=== PATIENT | male | born 1970 | race Caucasian/White ===

== ENCOUNTER → 2016-06-28 | Outpatient (CLI) | payer BC ==
--- NOTE | 2016-06-28 10:48 | ECHOS ---
DATE OF SERVICE: 06/28/2016 AGE: 45Y SEX: M HT: 72 WT: 255 lbs. Protocol Héctor: X Others: Stress Echo Stage: IV Dur. of Exercise: 10 minutes *Heart Rate Blood Pressure *Rest: 89 Rest: 110/46 * *Max. Achieved: 172 Maximum BP: 164/70 85% PMHR: 100% PMHR: *METS: 11.5 INDICATION OF THE STUDY: Chest pain. MEDICATIONS: STRESS DATA: Pretesting physical examination showed the heart rate of 89, pressure is 110/46 mmHg. Baseline EKG showed sinus rhythm. The patient exercised on the treadmill according to Héctor protocol for a total of 10 minutes and achieved 11.5 METs. Max heart rate was 172, which is about 99% of maximum predicted heart rate. Maximum blood pressure was 164/70 mmHg. Clinically, the patient did not have any symptoms of chest pain or discomfort during the testing or in the recovery time. The EKG did not show any significant ST or T wave abnormalities consistent with ischemia. ECHOCARDIOGRAM IMAGES: On echocardiogram images from parasternal long axis view, parasternal short axis view, apical 4 chambers and apical 2 chambers view were obtained as baseline images, at the peak of the heart rate, as well as on recovery and the echocardiogram images showed good augmentation in the left ventricular systolic function without any evidence of wall motion abnormalities consistent with ischemia. CONCLUSION: 1. Good exercise capacity. 2. Normal EKG in response to exercise. 3. Normal echocardiogram in response to exercise.
== END | disposition home or self-care (01) ==
LOC: RADNMMAIN 09:03
PROVIDERS: ATTEND Family Medicine
DX: R07.9 Chest pain, unspecified (principal)
CPT/HCPCS: 93017; 93350

== ENCOUNTER → 2017-12-08 | Outpatient (CLI) | payer BC ==
--- NOTE | 2017-12-08 17:12 | ECHOF ---
Referral Reason:R42 Dizziness Giddiness, R03.0 Elevated Blood Pres MEASUREMENTS -------- HEIGHT: 182.9 cm WEIGHT: 113.4 kg BP: IVSd: 0.8 cm (0.6 - 1.1) LVIDd: 4.4 cm (3.9 - 5.3) LVPWd: 1.1 cm (0.6 - 1.1) IVSs: 2.1 cm LVIDs: 1.5 cm LVPWs: 1.7 cm Ao Diam: 3.8 cm (2.0 - 3.7) AV Cusp: 2.5 cm (1.5 - 2.6) LA Diam: 3.5 cm (2.7 - 3.8) MV EXCURSION: 8.330 mm (> 18.000) MV EF SLOPE: 68 mm/s (70 - 150) EPSS: 0.5 cm MV E Rio: 0.68 m/s MV DecT: 165 ms MV A Rio: 0.46 m/s MV E/A Ratio: 1.45 RAP: 5.00 mmHg RVSP: 22.03 mmHg FINDINGS -------- Sinus rhythm. This was a technically good study. The left ventricular size is normal. Left ventricular wall thickness is normal. Overall left vent ricular systolic function is normal with, an EF between 55 - 60 %. The right ventricle is normal in size. The left atrium is normal in size. The right atrium is normal in size. The aortic valve is trileaflet, and appears structurally normal. No aortic stenosis or regurgitation. There is trace mitral regurgitation. Trace tricuspid regurgitation present. The right ventricular systolic pressure, as measured by Dopp ler, is 22.03mmHg. Pulmonic valve appears structurally normal. The aortic root is dilated measuring 3.9 cm. Normal inferior vena cava with normal inspiratory collapse consistent with estimated right atrial pre ssure of 5 mmHg. The pericardium is normal. CONCLUSIONS -------- 1. Sinus rhythm. 2. This was a technically good study. 3. The left ventricular size is normal. 4. Left ventricular wall thickness is normal. 5. Overall left ventricular systolic function is normal with, an EF between 55 - 60 %. 6. The right ventricle is normal in size. 7. The left atrium is normal in size. 8. The right atrium is normal in size. 9. The aortic valve is trileaflet, and appears structurally normal. No aortic stenosis or regurgitati on. 10. There is trace mitral regurgitation. 11. Trace tricuspid regurgitation present. 12. The right ventricular systolic pressure, as measured by Doppler, is 22.03mmHg. 13. Pulmonic valve appears structurally normal. 14. The aortic root is dilated measuring 3.9 cm 15. Normal inferior vena cava with normal inspiratory collapse consistent with estimated right atrial pressure of 5 mmHg. 16. The pericardium is normal. FLEET TECHNICIAN: Katia Ocampo RDCS
--- NOTE | 2017-12-09 16:11 | US ---
EXAMINATION TYPE: US carotid duplex BILAT DATE OF EXAM: 12/08/2017 COMPARISON: NONE CLINICAL HISTORY: R42 Dizziness Giddiness, R03.0 Elevated Blood Pres. Pt states dizziness, lightheade d EXAM MEASUREMENTS: RIGHT: Peak Systolic Velocity (PSV) cm/sec ----- Right CCA: 68.6 ----- Right ICA: 59.3 ----- Right ECA: 61.2 ICA/CCA ratio: 0.9 RIGHT: End Diastole cm/sec ----- Right CCA: 20.6 ----- Right ICA: 29.9 ----- Right ECA: 11.9 LEFT: Peak Systolic Velocity (PSV) cm/sec ----- Left CCA: 78.2 ----- Left ICA: 88.8 ----- Left ECA: 56.4 ICA/CCA ratio: 1.1 LEFT: End Diastole cm/sec ----- Left CCA: 25.0 ----- Left ICA: 43.6 ----- Left ECA: 13.1 VERTEBRALS (direction of flow): Right Vertebral: Antegrade Left Vertebral: Antegrade Rhythm: Normal No significant stenosis seen IMPRESSION: Mild degree of grayscale atheromatous plaquing with no sonographically evident hemodynam ically significant stenosis within either visualized carotid arterial system.
== END | disposition home or self-care (01) ==
LOC: RADECHMAIN 14:55
PROVIDERS: ATTEND Family Medicine
DX: I65.23 Occlusion and stenosis of bilateral carotid arteries (principal); I77.819 Aortic ectasia, unspecified site
CPT/HCPCS: 93306; 93880

== ENCOUNTER → 2020-09-16 | Outpatient (CLI) | payer BC ==
--- NOTE | 2020-09-16 18:03 | CONS ---
CONSULTATION DATE OF SERVICE: 09/16/2020 This is a 50-year-old gentleman who has been evaluated in Sleep Center for possible obstructive sleep apnea-hypopnea syndrome. HISTORY OF PRESENT ILLNESS/SLEEP-WAKE EVALUATION: Patient's usual sleep schedule is from 9:30 p.m. to 4:30 a.m. on weekdays and from 10 p.m. to 6 a.m. on weekends. No problems with falling asleep. No TV in bedroom. The patient usually sleeps on the side position. He has loud snoring and witnessed episodes by his of stopped breathing during sleep. The patient has history of episodes of palpitation, heartburn, gasping for air. He wakes up from sleep 2 times, usually without nocturia. In the morning, the patient has difficulties concentrating, difficulties paying attention. [place] Sleepiness Scale is 5. The patient drinks up to 5 caffeinated beverages in the morning hours. PAST MEDICAL HISTORY: Positive for hypertension, hyperlipidemia, acid reflux, sinus problems. PAST SURGICAL HISTORY: Hernia repair. MEDICATIONS: Only [id number] medications at the present time. SOCIAL HISTORY: Positive history of smoking in the past. Quit smoking in 2000. Continues to chew tobacco. Alcohol consumption: None. FAMILY HISTORY: Sleep apnea. REVIEW OF SYSTEMS: No fevers. No double vision. No recent chest pain. No shortness of breath. No abdominal pain. No bleeding episodes. No blood in the urine. No seizure episodes. Awakenings from sleep, loud snoring, episodes of stopped breathing during sleep. PHYSICAL EXAMINATION: GENERAL: A pleasant gentleman without distress. VITAL SIGNS: BP 135/92, HR 84, RR 15, height 6 feet 0 inches, weight 259, temperature 97.0. Oxygen saturation at room air 97%. Body mass index 34.9. HEENT: GERARDO SINGH. Evaluation of oropharynx showed tongue protrudes midline. Low position of soft palate. Mallampati III to IV. NECK: Supple. No JVD. Thyroid is not palpable. Wide neck; 18 inches in circumference. LUNGS: Clear to percussion and to auscultation. Good air exchange. No wheezing or rhonchi. HEART: S1, S2 regular. No murmurs, gallops or rubs. ABDOMEN: Soft and nontender. Bowel sounds are present. No organomegaly appreciated. EXTREMITIES: No clubbing or cyanosis. 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 Cranial nerves 2 to 7 intact. There is no fasciculation or atrophy. noted. No focal deficits observed. IMPRESSION: 1. Loud snoring, witnessed episodes of stopped breathing during sleep, low position of soft palate, wide neck, 18 inches in circumference; obstructive sleep apnea- hypopnea syndrome. 2. History of measurements of increasing blood pressure. 3. Hyperlipidemia. 4. Acid reflux. 5. Status post hernia repair. 6. Sinus problems. 7. Allergies. PLAN: 1. Home sleep apnea test to check the patient's breathing during sleep. 2. CPAP/BiPAP titration if sleep study confirms obstructive sleep apnea-hypopnea syndrome. 3. Preferable position during sleep on the side. 4. No driving if patient feels any sleepiness. 5. I will see patient for follow up visit to explain results of testing and following plan. Thank you very much for referring this patient for consultation. Sincerely, Sincere Villareal MD, PhD, FAASM Diplomat of [employer] [employer] [employer] Marine Equipment Design Engineer of [facility] [place] MMODL / IJN: [id number] /
== END ==
LOC: SLEEP 16:26
PROVIDERS: ATTEND Internal Medicine
DX: G47.33 Obstructive sleep apnea (adult) (pediatric) (principal); E78.5 Hyperlipidemia, unspecified; K21.9 Gastro-esophageal reflux disease without esophagitis; Z98.890 Other specified postprocedural states; T78.40XA Allergy, unspecified, initial encounter; I10 Essential (primary) hypertension; F17.220 Nicotine dependence, chewing tobacco, uncomplicated; J34.9 Unspecified disorder of nose and nasal sinuses
CPT/HCPCS: 99211

== ENCOUNTER → 2020-09-28 | Outpatient (CLI) | payer BC ==
--- NOTE | 2020-10-16 11:51 | EM ---
EVENT MONITOR INDICATION: Chest pain. It is a 14 day event monitor. Provided rhythm strips show sinus rhythm with episodes of sinus tachycardia and occasional PVCs and PACs. There were no episodes of sustained ventricular tachyarrhythmia. There were no first and second pauses. There were episodes of ventricular bigeminy noted. CONCLUSION: This 24 hour Holter revealed sinus rhythm with sinus tachycardia and frequent PVCs including a 4-beat run of nonsustained VT, PACs are also noted. MMODL / IJN: [id number] /
== END | disposition home or self-care (01) ==
LOC: RADECHMAIN 12:28
PROVIDERS: ATTEND Family Medicine
DX: R00.0 Tachycardia, unspecified (principal); I49.3 Ventricular premature depolarization; I49.1 Atrial premature depolarization
CPT/HCPCS: 93270

== ENCOUNTER → 2020-10-14 | Outpatient (CLI) | payer BC ==
--- NOTE | 2020-10-15 03:12 | MR ---
EXAMINATION TYPE: MR brain wo/w con DATE OF EXAM: 10/14/2020 COMPARISON: HISTORY: Possible stroke. Transient cerebral ischemic attack, unspecified. CONTRAST: Standard multiplanar, multisequence MRI departmental protocol utilizing 12 mL intravenous Gadavist ga dolinium contrast. Ventricles have fairly normal size. There is no mass effect nor mid line shift. There is no sign of i ntracranial hemorrhage. Diffusion images show no sign of an acute infarct. There are a few foci of in creased signal measuring up to 5 mm in the white matter of both cerebral hemispheres. Total number is approximately 5 and these are somewhat peripheral. Contrast images show no pathologic enhancement. There is normal enhancement of the venous sinuses. Br ainstem is intact. Corpus callosum is intact. Sella turcica appears normal. Pituitary stalk is in the midline. IMPRESSION: There are a few scattered white matter high signal foci of uncertain significance. This could relate to minimal small vessel ischemia. No evidence of cortical infarct.
--- NOTE | 2020-10-15 03:15 | MR ---
EXAMINATION TYPE: MR neck wo/w con DATE OF EXAM: 10/14/2020 COMPARISON: HISTORY: Possible stroke. Transient cerebral ischemic attack, unspecified. CONTRAST: Standard multiplanar, multisequence MRI departmental protocol utilizing 12 mL intravenous Gadavist ga dolinium contrast. Multiplanar multiecho imaging of the neck was performed without and with IV contrast. There is normal branching pattern of the great vessels on the aortic arch. There is no evidence of th yroid mass. I see no significant cervical adenopathy. Trachea appears normal. Submandibular salivary glands are symmetric. There is no evidence of a parotid mass. I see no bony destructive process. IMPRESSION: Negative MR scan of the neck.
== END | disposition home or self-care (01) ==
LOC: RADMRIMAIN 20:36
PROVIDERS: ATTEND Nurse Practitioner
DX: G45.9 Transient cerebral ischemic attack, unspecified (principal); R90.82 White matter disease, unspecified
CPT/HCPCS: 70543; 70553; A9585

== ENCOUNTER 2020-11-07 05:40 | Emergency (ER) | payer BC ==
[2020-11-07 05:46] VITALS: RESP 18; TEMP 98.2
--- NOTE | 2020-11-07 05:51 | ED ---
Chest Pain HPI - General Source: patient, RN notes reviewed, old records reviewed Mode of arrival: wheelchair Limitations: no limitations - History of Present Illness MD Complaint: chest pain -: days(s) Onset: during rest Pain Location: substernal Pain Radiation: none Severity: moderate Severity scale (1-10): 5 Consistency: constant Improves With: nothing, eating Other Symptoms: cough Treatments Prior to Arrival: none <Gaurav Pineda - Last Filed: 11/07/20 06:57> <Luther Frias - Last Filed: 11/07/20 09:59> - General Chief Complaint: Chest Pain Stated Complaint: Chest Pain Time Seen by Provider: 11/07/20 05:51 - Related Data Allergies Allergy/AdvReac Type Severity Reaction Status Date / Time No Known Allergies Allergy Verified 11/07/20 05:44 Review of Systems ROS Other: All systems not noted in ROS Statement are negative. <Gaurav Pineda - Last Filed: 11/07/20 06:57> ROS Other: All systems not noted in ROS Statement are negative. <Luther Frias - Last Filed: 11/07/20 09:59> ROS Statement: Those systems with pertinent positive or pertinent negative responses have been documented in the HPI. EKG Findings - EKG Comments: EKG Findings:: EKG is sinus rhythm 87 SD 182 QRS 88 QTc 442 <Gaurav Pineda - Last Filed: 11/07/20 06:57> Past Medical History Past Medical History: CVA/TIA, Hyperlipidemia, Hypertension History of Any Multi-Drug Resistant Organisms: None Reported Past Surgical History: Hernia Repair Past Psychological History: No Psychological Hx Reported Smoking Status: Former smoker Past Alcohol Use History: Daily Past Drug Use History: None Reported <Gaurav Pineda - Last Filed: 11/07/20 06:57> General Exam Limitations: no limitations General appearance: alert, in no apparent distress Head exam: Present: atraumatic, normocephalic, normal inspection Eye exam: Present: normal appearance, PERRL, EOMI. Absent: scleral icterus, conjunctival injection, periorbital swelling ENT exam: Present: normal exam, mucous membranes moist Neck exam: Present: normal inspection. Absent: tenderness, meningismus, lymphadenopathy Respiratory exam: Present: normal lung sounds bilaterally. Absent: respiratory distress, wheezes, rales, rhonchi, stridor Cardiovascular Exam: Present: regular rate, normal rhythm, normal heart sounds. Absent: systolic murmur, diastolic murmur, rubs, gallop, clicks GI/Abdominal exam: Present: soft, normal bowel sounds. Absent: distended, tenderness, guarding, rebound, rigid Extremities exam: Present: normal inspection, full ROM, normal capillary refill. Absent: tenderness, pedal edema, joint swelling, calf tenderness Back exam: Present: normal inspection Neurological exam: Present: alert, oriented X3, CN II-XII intact Psychiatric exam: Present: normal affect, normal mood Skin exam: Present: warm, dry, intact, normal color. Absent: rash <Gaurav Pineda - Last Filed: 11/07/20 06:57> Course <Gaurav Pineda - Last Filed: 11/07/20 06:57> <Luther Frias - Last Filed: 11/07/20 09:59> Vital Signs 11/07/20 11/07/20 05:44 06:46 Temperature 98.2 F Pulse Rate 81 75 Respiratory 18 18 Rate Blood Pressure 139/88 112/79 O2 Sat by Pulse 100 95 Oximetry - Reevaluation(s) Reevaluation #1: 11/07/20 06:57 Medical record is reviewed (Gaurav Pineda) Reevaluation #2: 11/07/20 06:57 Patient states his symptoms are improved both at home and furthermore here in the ER (Gaurav Pineda) Reevaluation #3: 11/07/20 06:57 Patient is currently without chest pain shortness of breath or neurological complaint (Gaurav Pineda) Reevaluation #4: 11/07/20 06:57 Patient informed results and questions answered 11/07/20 06:57 Patient prefers discharge after second troponin possible (Gaurav Pineda) 11/07/20 09:58 Chest x-ray reviewed. Patient has refused admission. Patient reevaluated and resting comfortably in bed. Patient states he has had significant workup recently including stress test this past week. Patient updated on limitations of tests in the emergency department and does demonstrate medical decision making. Patient states he does have an appointment follow-up Wednesday with his display designer. Patient advised to follow-up sooner as well as with primary care physician. (Luther Frias) Disposition Is patient prescribed a controlled substance at d/c from ED?: No <Gaurav Pineda - Last Filed: 11/07/20 06:57> Is patient prescribed a controlled substance at d/c from ED?: No <Luther Frias - Last Filed: 11/07/20 09:59> Clinical Impression: Chest pain Disposition: Left Against Medical Advice Condition: Fair Instructions (If sedation given, give patient instructions): Chest Pain (ED) Additional Instructions: Please do follow-up with your display designer and primary care physician Monday. Return for pain, difficulty breathing, worsening symptoms or any other concerns. Referrals: Cruz Belcher MD [Primary Care Provider] - 1-2 days
[2020-11-07 06:15] LABS: Basophils # (A) 0.1 k/uL (0-0.2); Basophils % (A) 1 %; Eosinophils # (A) 0.5 k/uL (0-0.7); Eosinophils % (A) 6 %; HGB 16.9 gm/dL (13.0-17.5); Lymphocytes # (A) 2.5 k/uL (1.0-4.8); Lymphocytes % (A) 30 %; MCHC 35.1 g/dL (31.0-37.0); MCV 91.1 fL (80.0-100.0); Mean Platelet Volume 6.9; Monocytes # (A) 0.6 k/uL (0-1.0); Monocytes % (A) 8 %; Neutrophils # (A) 4.4 k/uL (1.3-7.7); Neutrophils % (A) 54 %; Platelet Count 284 k/uL (150-450); RBC 5.27 m/uL (4.30-5.90); RDW 12.1 % (11.5-15.5); WBC 8.2 k/uL (3.8-10.6)
[2020-11-07 06:18] LABS: ALT 38 U/L (4-49); African American GFR (CKD) >90 (>60 ml/min/1.73 sqM); Anion Gap 8 mmol/L; Blood Urea Nitrogen 17 mg/dL (9-20); Calcium 9.9 mg/dL (8.4-10.2); Carbon Dioxide 25 mmol/L (22-30); Chloride 104 mmol/L (98-107); Creatine Kinase 270 U/L (55-170); Glucose 106 mg/dL (74-99); Lipase 144 U/L (23-300); Non-African American GFR(CKD) 86 (>60 ml/min/1.73 sqM); Sodium 137 mmol/L (137-145); Total Bilirubin 2.4 mg/dL (0.2-1.3)
--- NOTE | 2020-11-07 06:19 | XR ---
EXAMINATION TYPE: XR chest 2V DATE OF EXAM: 11/07/2020 COMPARISON: NONE HISTORY: Chest pain TECHNIQUE: 2 views FINDINGS: Heart and mediastinum are normal. Lungs are clear. Diaphragm is normal. Bony thorax appears normal. There are chest leads. IMPRESSION: Normal chest.
[2020-11-07 06:20] LABS: INR 0.9 (<1.2); Partial Thromboplastin Time 26.5 sec (22.0-30.0)
[2020-11-07] MEDS ORDERED: NITROGLYCERIN SL TABS 0.4 MG TAB SUBLINGUAL PRN (06:36)
[2020-11-07] MEDS ORDERED: MORPHINE SULFATE 4 MG/ML SYRINGE IV PRN (06:36)
[2020-11-07] MEDS ORDERED: ASPIRIN 81 MG PO STA ×2 (06:36→07:08)
[2020-11-07 06:41] LABS: Magnesium 2.1 mg/dL (1.6-2.3); Potassium 4.7 mmol/L (3.5-5.1)
[2020-11-07 06:42] LABS: AST 41 U/L (17-59); Albumin 4.7 g/dL (3.5-5.0); Alkaline Phosphatase 97 U/L (38-126); Total Protein 7.4 g/dL (6.3-8.2)
[2020-11-07 07:23] LABS: Creatine Kinase MB 2.5 ng/mL (0.0-2.4); Troponin I <0.012 ng/mL (0.000-0.034)
[2020-11-07 10:11] VITALS: BP 113/70; PULSE 72
[2020-11-08] MEDS ORDERED: ASPIRIN 325 MG TAB PO SCH (09:00)
== END 2020-11-07 10:15 | disposition left against medical advice (07) ==
LOC: EC 05:40 → 6NMEDSUR 06:36 → UNDOADMOB 06:36 → EC 10:15
DX: R07.89 Other chest pain (principal); I10 Essential (primary) hypertension; E78.5 Hyperlipidemia, unspecified; Z86.73 Personal history of transient ischemic attack (TIA), and cerebral infarction without residual deficits; Z87.891 Personal history of nicotine dependence
CPT/HCPCS: 36415; 71046; 80053; 82550; 82553; 83690; 83735; 83880; 84484; 85025; 85610; 85730; 93005; 99285

== ENCOUNTER → 2020-11-20 | Day surgery (SDC) | payer BC ==
[2020-11-19 10:03] VITALS: BMI 33.9
[~2020-11-20] MED LIST: ALPRAZolam 0.25 MG TAB PO PRN; ALPRAZolam 0.5 MG TAB PO PRN; ASPIRIN 325 MG TAB PO STA; ASPIRIN 81 MG PO SCH; ATORVASTATIN 40 MG TAB PO SCH; ATORVASTATIN 80 MG TAB PO STA; IOPAMIDOL-370 125ML BTL INJ ONE; LIDOCAINE 1% INJ 10MG/ML (20 ML MDV) SQ ONE; LORATADINE 10 MG TAB PO PRN; LOSARTAN 50 MG TAB PO SCH; METOPROLOL SUCCINATE (ER) 25 MG TAB.ER.24H PO SCH; MIDAZOLAM 2 MG/2 ML VIAL IV ONE; NITROGLYCERIN SL TABS 0.4 MG TAB SUBLINGUAL PRN; RX INFO: IV CONTRAST WAS GIVEN 1 EACH MISC MISCELLANE PRN; SODIUM CHLORIDE 0.9% 1,000 ML IV SCH; SODIUM CHLORIDE 0.9% 1,000 ML in EMPTY BAG 1 BAG IV ONE; VERAPAMIL SYRINGE (5 MG/10 ML) INTRAARTER ONE; fentaNYL (PF) 50 MCG/ML 2 ML AMP IV ONE
[2020-11-20 07:03] VITALS: RESP 16; TEMP 99.2
[2020-11-20 10:16] VITALS: BP 119/73; PULSE 68
--- NOTE | 2020-11-20 13:05 | P.CARDCATH ---
Description of Procedure: PROCEDURES PERFORMED: Left heart catheterization, bilateral coronary angiography INDICATION: Abnormal stress test HISTORY: Patient is a pleasant 50-year-old male with history of hypertension, borderline diabetes, family history of coronary artery disease. He has been having somewhat atypical chest pain as well as palpitations. Workup identified in the inferior defect or for heart catheterization was recommended. CONSENT:I have discussed the risks, benefits and alternative therapies for the above-mentioned procedure and for both sedation/analgesia as well as necessary blood product administration, if indicated, as they pertain to this patient. The patient has indicated understanding and acceptance of the risks and proced ures discussed. PROCEDURE: After the risks, benefits and alternatives of the above mentioned procedure explained in detail with the patient, informed consent was obtained. Patient was taken to the catheterization lab and prepped and draped in usual fashion. 1% lidocaine was used to anesthetize the right radial artery. A 6- [place] sheath was placed in the right radial artery using modified Seldinger technique. Left coronary angiography was performed with a 5-[place] JL 3.5 catheter and right coronary angiography was performed with a 5-[place] JR5 catheter in various views. A 5-[place] FRS 5 catheter was inserted into the left ventricle and pressure measurements were obtained. The right radial sheath was removed and a TR band was placed with hemostasis achieved. The patient tolerated the procedure well. Patient was transported back to the post catheterization holding area in stable condition. Conscious Sedation: Patient was monitored under the direct supervision of vision of myself for conscious sedation using Versed and fentanyl for a total duration of 18 minutes HEMODYNAMICS: Aorta: 135/67 LV: 132/1, LVEDP 12 SELECTIVE CORONARY ARTERIOGRAPHY: LEFT MAIN: The left main is a large caliber vessel which bifurcates into the LAD and circumflex. There is no significant stenosis. LEFT ANTERIOR DESCENDING CORONARY ARTERY: LAD is a large caliber vessel which wraps around to the apex. There is a mild proximal LAD 30-40% stenosis and otherwise is normal. LEFT CIRCUMFLEX CORONARY ARTERY: Left circumflex is a moderate caliber vessel without significant stenosis. RIGHT CORONARY ARTERY: The right coronary artery is a large caliber vessel which gives off a PDA and PLV branch and is the dominant vessel. There is no significant stenosis. FINAL IMPRESSION: 1. Relatively normal coronary arteries except for a proximal LAD 30-40% stenosis 2. Normal left-sided filling pressures PLAN: 1. Aggressive risk factor modification per most recent ACC/AHA guidelines. 2. Follow-up in the office in 1-2 weeks.
== END ==
LOC: CATHCVL 05:45
PROVIDERS: ATTEND Internal Medicine
DX: I25.10 Atherosclerotic heart disease of native coronary artery without angina pectoris (principal); I10 Essential (primary) hypertension; R73.03 Prediabetes; G47.33 Obstructive sleep apnea (adult) (pediatric); E78.5 Hyperlipidemia, unspecified; F17.220 Nicotine dependence, chewing tobacco, uncomplicated; E66.9 Obesity, unspecified; Z68.34 Body mass index [BMI] 34.0-34.9, adult; F10.10 Alcohol abuse, uncomplicated; F41.9 Anxiety disorder, unspecified; Z82.49 Family history of ischemic heart disease and other diseases of the circulatory system; Z86.73 Personal history of transient ischemic attack (TIA), and cerebral infarction without residual deficits; Z79.899 Other long term (current) drug therapy
CPT/HCPCS: 93458; C1894; J2250; J2001; J3010; J1644; Q9967

== ENCOUNTER → 2020-12-03 | Outpatient (CLI) | payer BC ==
--- NOTE | 2020-12-03 20:45 | SFUN ---
SLEEP CENTER FOLLOW UP NOTE DATE OF SERVICE: 12/03/2020 50-year-old gentleman who had been followed in Sleep Center for treatment of obstructive sleep apnea-hypopnea syndrome. CLINICAL: Titration with positive air pressure has been done for correction of respiratory abnormalities during sleep. DESCRIPTION OF PROCEDURE: The standard montage for clinical polysomnography included the electroencephalogram, the electrocardiogram, the mentalis surface electromyography and Lead II cardiography. The respiratory battery consisted of measurements of nasal /buccal air flow, pressure transducer measurements from the nose, thoracic and /or abdominal effort and intercostal surface electromyography. Video monitoring has been done to check for any parasomnia events. Nocturnal oxyhemoglobin saturations were obtained by finger oximetry. Step-stiles titration with positive airway pressure was utilized to control respiratory events. RESULTS: Recently the patient had home sleep apnea test, which showed the patient has obstructive sleep apnea and then he was started on treatment with Auto PAP. Today is his first visit after he was started on treatment with positive air pressure. The patient wakes up in the middle of the night while using his CPAP equipment and feels the pressure is too high and he takes his mask off. Otherwise, he feels improvements with his sleep and feeling during the day. [place] Sleepiness Scale today is 3, which is perfect. I checked his CPAP unit. Range of the pressure 5-20, average pressure 13.6, usage 30/30 nights at 19/30 nights for more than 4 hours, average 5.3 hours per night. Leak is 26 L/minute, which is borderline. Apnea-hypopnea index is 5.5, which is slightly increased. Ramp is off, humidifying to the level of 4, which is in the middle. CURRENT MEDICATIONS: Over the counter medications at the present time. PHYSICAL EXAMINATION: GENERAL: Patient in no distress. BP 113/73, HR 72, RR 15, weight 257, temp 98.0, oxygen saturation at room air 98%. HEENT: PERRLA, EOMI. Oropharynx low position of soft palate. Mallampati 3-4. LUNGS: Clear to percussion and to auscultation. Good air exchange. No wheezing or rhonchi. NECK: Supple, no JVD. Thyroid is not palpable. HEART: S1, S2 regular. No murmurs, gallops, or rubs. ABDOMEN: Soft and nontender. Bowel sounds are present. No organomegaly appreciated. EXTREMITIES: No clubbing or cyanosis. 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 Cranial nerves 2 to 7 intact. There is no fasciculation or atrophy. noted. No focal deficits observed. IMPRESSION: 1. Obstructive sleep apnea-hypopnea syndrome. Patient benefitting from the CPAP treatment, borderline compliance. 2. History of increased blood pressure in the past. 3. Hyperlipidemia. 4. Acid reflux. 5. Status post hernia repair. 6. Sinus problems. 7. Allergies. PLAN: 1. I changed ramp to automatic regimen. 2. I changed the pressure range from 5-15 instead of 20. 3. I discussed with the patient position of the machine, adjustments of humidifier, and temperature in the tube and explained and showed patient how to do it. 4. Patient will continue to use PAP equipment every night for the whole night. 5. Sleep hygiene with regular time in bed for at least 7-1/2 to 8 hours. 6. Precautions related to driving. No driving if feeling sleepiness. 7. I will maintain all necessary prescription for PAP supplies including mask, tube, filters. 8. Watching weight. 9. Follow-up visit in 2 months or earlier if patient has any problems. I spent with the patient in documentation, more than 30 minutes. Thank you very much for allowing me to participate in management of your patient. Sincerely, Sincere Villareal MD, PhD, FAASM Diplomat of [place] [employer] Sleep Medicine Board of [place] [employer] Representative of [facility] [place] [email or web address] / SPENCERN: [id number] /
== END ==
LOC: SLEEP 11:48
PROVIDERS: ATTEND Internal Medicine
DX: G47.33 Obstructive sleep apnea (adult) (pediatric) (principal); E78.5 Hyperlipidemia, unspecified; K21.9 Gastro-esophageal reflux disease without esophagitis; J34.9 Unspecified disorder of nose and nasal sinuses; T78.40XD Allergy, unspecified, subsequent encounter; Z98.890 Other specified postprocedural states; Z87.898 Personal history of other specified conditions

== ENCOUNTER 2021-10-06 08:20 | Day surgery (SDC) | payer BC ==
[2021-10-05 08:13] VITALS: BMI 35.2
--- NOTE | 2021-10-06 08:11 | P.GSHP ---
History of Present Illness H&P Date: 10/06/21 CHIEF COMPLAINT: Colon screen HISTORY OF PRESENT ILLNESS: The patient is a 51-year-old male who presents for colon screen. Lower endoscopy was offered for further evaluation and management. PAST MEDICAL HISTORY: Please see list. PAST SURGICAL HISTORY: Please see list. MEDICATIONS: Please see list. ALLERGIES: Please see list. SOCIAL HISTORY: No illicit drug use FAMILY HISTORY: No reports of Crohn disease or ulcerative colitis. REVIEW OF ORGAN SYSTEMS: CONSTITUTIONAL: No reports of fevers or chills. PHYSICAL EXAM: VITAL SIGNS: Stable GENERAL: Well-developed pleasant in no acute distress. HEENT: No scleral icterus. Extraocular movements grossly intact. Moist buccal mucosa. NECK: Supple without lymphadenopathy. CHEST: Unlabored respirations. Equal bilateral excursions. CARDIOVASCULAR: Regular rate and rhythm. Distal 2+ pulses. ABDOMEN: Soft, nontender, nondistended. MUSCULOSKELETAL: No clubbing, cyanosis, or edema. ASSESSMENT: 1. Colon screen. PLAN: 1. Recommend proceeding with a lower endoscopy Past Medical History Past Medical History: Chest Pain / Angina, CVA/TIA, GERD/Reflux, Hyperlipidemia, Hypertension, Osteoarthritis (OA), Sleep Apnea/CPAP/BIPAP Additional Past Medical History / Comment(s): palpitations, TIA-no residual effects, "irregular heartbeat", History of Any Multi-Drug Resistant Organisms: None Reported Past Surgical History: Heart Catheterization, Hernia Repair Past Anesthesia/Blood Transfusion Reactions: Motion Sickness Smoking Status: Former smoker - Past Family History Mother Family Medical History: No Reported History Medications and Allergies Home Medications Medication Instructions Recorded Confirmed Type Aspirin 81 mg PO DAILY 11/19/20 10/05/21 History Atorvastatin [Lipitor] 40 mg PO DAILY 11/19/20 10/05/21 History Losartan Potassium [Cozaar] 50 mg PO DAILY 11/19/20 10/05/21 History Metoprolol Succinate [Toprol XL] 25 mg PO DAILY 11/19/20 10/05/21 History Fluticasone Nasal [place] [Flonase 1 spray EA NOSTRIL DAILY 10/05/21 10/05/21 H istory Nasal [place]] Allergies Allergy/AdvReac Type Severity Reaction Status Date / Time No Known Allergies Allergy Verified 10/05/21 08:04
[~2021-10-06 08:20] MED LIST changes: -ALPRAZolam 0.25 MG TAB PO PRN; -ALPRAZolam 0.5 MG TAB PO PRN; -ASPIRIN 325 MG TAB PO STA; -ASPIRIN 81 MG PO SCH; -ATORVASTATIN 40 MG TAB PO SCH; -ATORVASTATIN 80 MG TAB PO STA; -IOPAMIDOL-370 125ML BTL INJ ONE; +LACTATED RINGERS 1,000 ML IV SCH; +LIDOCAINE 1% (10MG/ML) FOR IV START INTRADERMA PRN; -LIDOCAINE 1% INJ 10MG/ML (20 ML MDV) SQ ONE; -LORATADINE 10 MG TAB PO PRN; -LOSARTAN 50 MG TAB PO SCH; -METOPROLOL SUCCINATE (ER) 25 MG TAB.ER.24H PO SCH; -MIDAZOLAM 2 MG/2 ML VIAL IV ONE; -NITROGLYCERIN SL TABS 0.4 MG TAB SUBLINGUAL PRN; -RX INFO: IV CONTRAST WAS GIVEN 1 EACH MISC MISCELLANE PRN; -SODIUM CHLORIDE 0.9% 1,000 ML IV SCH; -SODIUM CHLORIDE 0.9% 1,000 ML in EMPTY BAG 1 BAG IV ONE; -VERAPAMIL SYRINGE (5 MG/10 ML) INTRAARTER ONE; -fentaNYL (PF) 50 MCG/ML 2 ML AMP IV ONE
[2021-10-06 09:04] VITALS: RESP 18; TEMP 98.2
[2021-10-06] MEDS ORDERED: PROPOFOL 10 MG/ML 20 ML VIAL IV ONE (09:19)
--- NOTE | 2021-10-06 09:42 | P.PCN ---
Date of Procedure: 10/06/21 Description of Procedure: PREOPERATIVE DIAGNOSIS: Colonoscopy screening. POSTOPERATIVE DIAGNOSIS: Colonoscopy screening. Diverticulosis, scattered. OPERATION: Colonoscopy to the cecum, ileocecal valve and appendiceal orifice. SURGEON: Verónica Proctor MD. ANESTHESIA: MAC. INDICATIONS: The patient is a 51-year-old male who presents for colonoscopy screening. Benefits and risks were described and informed consent was obtained. DESCRIPTION OF PROCEDURE: The patient had undergone Sutab prep. The patient had been brought into the operating room and laid in the left lateral decubitus position. After adequate intravenous sedation, the rectum was examined with 2% lidocaine jelly. No external hemorrhoids were encountered. The prostate was unremarkable. The rectal tone was within normal limits. No lesions were palpated in the rectal vault. An Olympus colonoscope was advanced until the cecum, ileocecal valve and appendiceal orifice were clearly viewed. The prep was excellent. Scattered diverticulosis was encountered. No colonic polyps were found. No evidence of focal colitis was found. Retroflexion of the scope demonstrated grade 1 internal hemorrhoids without active bleeding or inflammation. The colon was desufflated. The patient had tolerated the procedure well. Withdrawal time was over 6 minutes. FINDINGS: Aronchick preparation quality scale 1 (1-5) Internal hemorrhoids, grade 1 No external prolapsed hemorrhoids. No arteriovenous malformations. No adenomatous polyps. No focal colitis. Sigmoid diverticulosis RECOMMENDATIONS: Lower endoscopy in 10 years, 2031 Plan - Discharge Summary New Discharge Prescriptions: Continue Aspirin 81 mg PO DAILY Losartan Potassium [Cozaar] 50 mg PO DAILY Metoprolol Succinate [Toprol XL] 25 mg PO DAILY Atorvastatin [Lipitor] 40 mg PO DAILY Fluticasone Nasal [place] [Flonase Nasal [place]] 1 spray EA NOSTRIL DAILY Discharge Medication List Aspirin 81 mg PO DAILY 11/19/20 [History] Atorvastatin [Lipitor] 40 mg PO DAILY 11/19/20 [History] Losartan Potassium [Cozaar] 50 mg PO DAILY 11/19/20 [History] Metoprolol Succinate [Toprol XL] 25 mg PO DAILY 11/19/20 [History] Fluticasone Nasal [place] [Flonase Nasal [place]] 1 spray EA NOSTRIL DAILY 10/05/21 [History] Follow up Appointment(s)/Referral(s): Verónica Proctor MD [STAFF PHYSICIAN] - As Needed Patient Instructions/Handouts: Diverticulosis (DC), Diverticulosis Diet (GEN) Activity/Diet/Wound Care/Special Instructions: Repeat colonoscopy 10 years, 2031 Discharge Disposition: HOME SELF-CARE
[2021-10-06 10:02] VITALS: BP 117/77; PULSE 77
== END 2021-10-06 10:18 | disposition home or self-care (01) ==
LOC: ORWHC2ENDO 08:20
PROVIDERS: ATTEND Surgery Plastic and Reconstructive Surgery
DX: Z12.11 Encounter for screening for malignant neoplasm of colon (principal); K21.9 Gastro-esophageal reflux disease without esophagitis; K57.90 Diverticulosis of intestine, part unspecified, without perforation or abscess without bleeding; E78.5 Hyperlipidemia, unspecified; G47.30 Sleep apnea, unspecified; I10 Essential (primary) hypertension; M19.90 Unspecified osteoarthritis, unspecified site; Z79.82 Long term (current) use of aspirin; Z79.899 Other long term (current) drug therapy; Z86.73 Personal history of transient ischemic attack (TIA), and cerebral infarction without residual deficits; Z87.891 Personal history of nicotine dependence
CPT/HCPCS: 45378; J2704

== ENCOUNTER 2023-06-26 10:04 | Inpatient (IN) | payer BC ==
[2023-06-26 10:56] LABS: Basophils % (A) 1 %; Eosinophils # (A) 0.2 k/uL (0-0.7); Eosinophils % (A) 2 %; HCT 46.6 % (39.0-53.0); HGB 15.5 gm/dL (13.0-17.5); Lymphocytes # (A) 2.1 k/uL (1.0-4.8); Lymphocytes % (A) 28 %; MCH 30.9 pg (25.0-35.0); MCHC 33.3 g/dL (31.0-37.0); Mean Platelet Volume 7.9; Monocytes # (A) 0.5 k/uL (0-1.0); Monocytes % (A) 7 %; Neutrophils # (A) 4.5 k/uL (1.3-7.7); Neutrophils % (A) 60 %; Platelet Count 248 k/uL (150-450); RBC 5.02 m/uL (4.30-5.90); RDW 12.1 % (11.5-15.5); WBC 7.5 k/uL (3.8-10.6)
[2023-06-26 11:10] LABS: ALT 32 U/L (4-49); AST 35 U/L (17-59); African American GFR (CKD) >90 (>60 ml/min/1.73 sqM); Albumin 4.1 g/dL (3.5-5.0); Alkaline Phosphatase 101 U/L (38-126); Anion Gap 6 mmol/L; Blood Urea Nitrogen 13 mg/dL (9-20); Carbon Dioxide 24 mmol/L (22-30); Chloride 108 mmol/L (98-107); Glucose 102 mg/dL (74-99); Magnesium 1.8 mg/dL (1.6-2.3); Non-African American GFR(CKD) >90 (>60 ml/min/1.73 sqM); Sodium 138 mmol/L (137-145); Total Bilirubin 1.9 mg/dL (0.2-1.3); Total Protein 6.7 g/dL (6.3-8.2)
[2023-06-26 11:11] LABS: INR 0.9 (<1.2); Partial Thromboplastin Time 22.5 sec (22.0-30.0); Prothrombin Time 10.3 sec (10.0-12.5)
[2023-06-26 11:12] LABS: Potassium 4.5 mmol/L (3.5-5.1)
--- NOTE | 2023-06-26 11:16 | ED ---
General Adult HPI - General Chief complaint: Syncope Stated complaint: Syncope Time Seen by Provider: 06/26/23 10:11 Source: patient, EMS Mode of arrival: EMS Limitations: no limitations - History of Present Illness Initial comments: 52-year-old male presents to the emergency department for evaluation of a syncopal episode that occurred at work today. Patient states that he was in his [employer] when he twisted his ankle. He reports that this caused him a lot of pain. He reports shortly after this he felt lightheaded and then next thing he knew he woke up on the ground with his coworkers surrounding him. He does report some continued lightheadedness. Patient states that he has started a new diet and did not eat this morning. He reports prior syncopal episodes with heavy exertion. Past medical history includes hypertension, hyperlipidemia, TIA. Follow-up with Dr. Villagran. He recently wore an event monitor for 2 weeks. He states that he had some short runs of fast heart rate with PVCs. He is currently on metoprolol. - Related Data Home Medications Medication Instructions Recorded Confirmed Atorvastatin [Lipitor] 40 mg PO DAILY 11/19/20 06/26/23 Losartan Potassium [Cozaar] 50 mg PO DAILY 11/19/20 06/26/23 Metoprolol Succinate [Toprol XL] 25 mg PO DAILY 11/19/20 06/26/23 Fluticasone Nasal [place] [Flonase 1 spray EA NOSTRIL DAILY PRN 10/05/21 06/26/23 Nasal [place]] Levocetirizine Dihydrochloride 5 mg PO DAILY PRN 06/26/23 06/26/23 [Xyzal] Allergies Allergy/AdvReac Type Severity Reaction Status Date / Time No Known Allergies Allergy Verified 06/26/23 12:38 Review of Systems ROS Statement: Those systems with pertinent positive or pertinent negative responses have been documented in the HPI. ROS Other: All systems not noted in ROS Statement are negative. Past Medical History Past Medical History: Chest Pain / Angina, CVA/TIA, GERD/Reflux, Hyperlipidemia, Hypertension, Osteoarthritis (OA), Sleep Apnea/CPAP/BIPAP Additional Past Medical History / Comment(s): palpitations, TIA-no residual effects, "irregular heartbeat", History of Any Multi-Drug Resistant Organisms: None Reported Past Surgical History: Heart Catheterization, Hernia Repair Past Anesthesia/Blood Transfusion Reactions: Motion Sickness Past Psychological History: No Psychological Hx Reported Smoking Status: Former smoker - Past Family History Mother Family Medical History: No Reported History General Exam Limitations: no limitations General appearance: alert, in no apparent distress Head exam: Present: atraumatic, normocephalic, normal inspection Eye exam: Present: normal appearance, PERRL, EOMI. Absent: scleral icterus, conjunctival injection, periorbital swelling ENT exam: Present: normal exam, mucous membranes moist Neck exam: Present: normal inspection. Absent: tenderness, meningismus, lymphadenopathy Respiratory exam: Present: normal lung sounds bilaterally. Absent: respiratory distress, wheezes, rales, rhonchi, stridor Cardiovascular Exam: Present: tachycardia, irregular rhythm, normal heart sounds GI/Abdominal exam: Present: soft, normal bowel sounds. Absent: distended, tenderness, guarding, rebound, rigid Extremities exam: Present: normal inspection, full ROM, tenderness (Left lateral ankle), normal capillary refill, other (DP and PT pulses 2+). Absent: pedal edema, joint swelling, calf tenderness Back exam: Present: normal inspection Neurological exam: Present: alert, oriented X3, CN II-XII intact Psychiatric exam: Present: normal affect, normal mood Skin exam: Present: warm, dry, intact, normal color. Absent: rash Course Vital Signs 06/26/23 06/26/23 06/26/23 10:17 11:24 12:18 Temperature 98.2 F Pulse Rate 91 154 H 146 H Pulse Rate [ Electro Mechanical Designer ] Respiratory 18 18 18 Rate Blood Pressure 126/92 120/80 104/81 Blood Pressure [Left Arm] O2 Sat by Pulse 99 98 96 Oximetry 06/26/23 06/26/23 06/26/23 14:00 14:35 14:51 Temperature 98.1 F Pulse Rate 120 H 97 100 Pulse Rate [ Electro Mechanical Designer ] Respiratory 18 18 Rate Blood Pressure 101/86 122/76 122/78 Blood Pressure [Left Arm] O2 Sat by Pulse 97 96 97 Oximetry 06/26/23 16:42 Temperature 97.6 F Pulse Rate Pulse Rate [ 84 Electro Mechanical Designer ] Respiratory 18 Rate Blood Pressure Blood Pressure 117/86 [Left Arm] O2 Sat by Pulse 97 Oximetry Medical Decision Making - Medical Decision Making Was pt. sent in by a medical professional or institution (, PA, [employer], urgent care, hospital, or group home...) When possible be specific @ -No Did you speak to anyone other than the patient for history (EMS, parent, family, police, friend...)? What history was obtained from this source @ -No Did you review nursing and triage notes (agree or disagree)? Why? @ -I reviewed and agree with nursing and triage notes Were old charts reviewed (outside hosp., previous admission, EMS record, old EKG, old radiological studies, urgent care reports/EKG's, group home records)? Report findings @ -No old charts were reviewed Differential Diagnosis (chest pain, altered mental status, abdominal pain women, abdominal pain men, vaginal bleeding, weakness, fever, dyspnea, syncope, headache, dizziness, GI bleed, back pain, seizure, CVA, palpatations, mental health, musculoskeletal)? @ -Differential Syncope: Valvular disease, hypertrophic cardiomyopathy, pulmonary embolism, tamponade, tachycardia, bradycardia, MT, hypovolemia, hemorrhage, dissection, anemia, intracranial hemorrhage, seizure, hypoglycemia, carbon monoxide poisoning, this is not meant to be an all-inclusive list. EKG interpreted by me (3pts min.). @ -EKG at 1038 shows irregular rhythm rate 144, QRS 90, QTQTc 193897 X-rays interpreted by me (1pt min.). @ -Chest x-ray shows no acute infiltrate Left ankle x-ray shows no acute fracture CT interpreted by me (1pt min.). @ -None done U/S interpreted by me (1pt. min.). @ -None done What testing was considered but not performed or refused? (CT, X-rays, U/S, labs)? Why? @ -None What meds were considered but not given or refused? Why? @ -None Did you discuss the management of the patient with other professionals (professionals i.e. DrHakan, PA, [employer], lab, RT, psych nurse, older adult social work specialist, refrigeration unit repairer, teacher, law enforcement officer, case work aide)? Give summary @ -Management discussed with Dr. Saenz with [facility] who is accepting of the admission Was smoking cessation discussed for >3mins.? @ -No Was critical care preformed (if so, how long)? @ -No Were there social determinants of health that impacted care today? How? (Homelessness, low income, unemployed, alcoholism, drug addiction, transportation, low edu. Level, literacy, decrease access to med. care, senior living, rehab)? @ -No Was there de-escalation of care discussed even if they declined (Discuss DNR or withdrawal of care, Hospice)? DNR status @ -No What co-morbidities impacted this encounter? (DM, HTN, Smoking, COPD, CAD, Cancer, CVA, ARF, Chemo, Hep., AIDS, mental health diagnosis, sleep apnea, morbid obesity)? @ -None Was patient admitted / discharged? Hospital course, mention meds given and route, prescriptions, significant lab abnormalities, going to OR and other pertinent info. @ -Admitted. Patient presented to the emergency department for evaluation of a syncopal episode that occurred today at work. On evaluation, patient is found to be in atrial fibrillation. He then developed A-fib with RVR. Patient was started on a Cardizem drip and given a 15 mg bolus. Rate continued to be in the 140s to 150s. Patient then given a dose of metoprolol 5 mg. Cardizem drip titrated to 10 mg. Patient's rate decreased to 90s to 110s. Laboratory studies obtained including a negative D-dimer and troponin. Patient will be admitted for new onset A-fib with RVR. Cardiology will be consulted. Case was discussed with Dr. Saenz [facility] hospitalist who is accepting of the admission. Patient stable at time of admission. Case discussed with Dr. Pineda Undiagnosed new problem with uncertain prognosis? @ -No Drug Therapy requiring intensive monitoring for toxicity (Heparin, Nitro, Insulin, Cardizem)? @ -No Were any procedures done? @ -No Diagnosis/symptom? @ -New onset A-fib with RVR Acute, or Chronic, or Acute on Chronic? @ -Acute Uncomplicated (without systemic symptoms) or Complicated (systemic symptoms)? @ -Uncomplicated Side effects of treatment? @ -No Exacerbation, Progression, or Severe Exacerbation? @ -No Poses a threat to life or bodily function? How? (Chest pain, USA, MT, pneumonia, PE, COPD, DKA, ARF, appy, cholecystitis, CVA, Diverticulitis, Homicidal, Suicidal, threat to staff... and all critical care pts) @ -No - Lab Data Result diagrams: 06/26/23 10:43 06/26/23 10:43 Lab Results 06/26/23 06/26/23 06/26/23 Range/Units 10:43 10:43 10:43 WBC 7.5 (3.8-10.6) k/uL RBC 5.02 (4.30-5.90) m/uL Hgb 15.5 (13.0-17.5) gm/dL Hct 46.6 (39.0-53.0) % MCV 93.0 (80.0-100.0) fL MCH 30.9 (25.0-35.0) pg MCHC 33.3 (31.0-37.0) g/dL RDW 12.1 (11.5-15.5) % Plt Count 248 (150-450) k/uL MPV 7.9 Neutrophils % 60 % Lymphocytes % 28 % Monocytes % 7 % Eosinophils % 2 % Basophils % 1 % Neutrophils # 4.5 (1.3-7.7) k/uL Lymphocytes # 2.1 (1.0-4.8) k/uL Monocytes # 0.5 (0-1.0) k/uL Eosinophils # 0.2 (0-0.7) k/uL Basophils # 0.0 (0-0.2) k/uL PT 10.3 (10.0-12.5) sec INR 0.9 (<1.2) APTT 22.5 (22.0-30.0) sec D-Dimer 0.55 (<0.60) mg/L FEU Sodium 138 (137-145) mmol/L Potassium 4.5 (3.5-5.1) mmol/L Chloride 108 H (98-107) mmol/L Carbon Dioxide 24 (22-30) mmol/L Anion Gap 6 mmol/L BUN 13 (9-20) mg/dL Creatinine 0.89 (0.66-1.25) mg/dL Est GFR (CKD-EPI)AfAm >90 (>60 ml/min/1.73 sqM) Est GFR (CKD-EPI)NonAf >90 (>60 ml/min/1.73 sqM) Glucose 102 H (74-99) mg/dL Calcium 9.0 (8.4-10.2) mg/dL Magnesium 1.8 (1.6-2.3) mg/dL Total Bilirubin 1.9 H (0.2-1.3) mg/dL AST 35 (17-59) U/L ALT 32 (4-49) U/L Alkaline Phosphatase 101 (38-126) U/L Troponin I (0.000-0.034) ng/mL Total Protein 6.7 (6.3-8.2) g/dL Albumin 4.1 (3.5-5.0) g/dL 06/26/23 Range/Units 10:43 WBC (3.8-10.6) k/uL RBC (4.30-5.90) m/uL Hgb (13.0-17.5) gm/dL Hct (39.0-53.0) % MCV (80.0-100.0) fL MCH (25.0-35.0) pg MCHC (31.0-37.0) g/dL RDW (11.5-15.5) % Plt Count (150-450) k/uL MPV Neutrophils % % Lymphocytes % % Monocytes % % Eosinophils % % Basophils % % Neutrophils # (1.3-7.7) k/uL Lymphocytes # (1.0-4.8) k/uL Monocytes # (0-1.0) k/uL Eosinophils # (0-0.7) k/uL Basophils # (0-0.2) k/uL PT (10.0-12.5) sec INR (<1.2) APTT (22.0-30.0) sec D-Dimer (<0.60) mg/L FEU Sodium (137-145) mmol/L Potassium (3.5-5.1) mmol/L Chloride (98-107) mmol/L Carbon Dioxide (22-30) mmol/L Anion Gap mmol/L BUN (9-20) mg/dL Creatinine (0.66-1.25) mg/dL Est GFR (CKD-EPI)AfAm (>60 ml/min/1.73 sqM) Est GFR (CKD-EPI)NonAf (>60 ml/min/1.73 sqM) Glucose (74-99) mg/dL Calcium (8.4-10.2) mg/dL Magnesium (1.6-2.3) mg/dL Total Bilirubin (0.2-1.3) mg/dL AST (17-59) U/L ALT (4-49) U/L Alkaline Phosphatase (38-126) U/L Troponin I <0.012 (0.000-0.034) ng/mL Total Protein (6.3-8.2) g/dL Albumin (3.5-5.0) g/dL Disposition Clinical Impression: New onset a-fib, Atrial fibrillation with RVR, Syncope Disposition: ADMITTED IP TO THIS HOSP Condition: Stable Is patient prescribed a controlled substance at d/c from ED?: No
--- NOTE | 2023-06-26 11:22 | XR ---
EXAMINATION TYPE: XR ankle complete LT DATE OF EXAM: 06/26/2023 11:07 AM CLINICAL INDICATION:Male, 52 years old with history of pain twisting injury; [facility] COMPARISON: None TECHNIQUE: XR ankle complete LT; ankle is imaged in frontal, lateral and oblique projections. FINDINGS: There is no evidence of acute osseous pathology. The joint spaces are well-preserved without evidenc e of subluxation or dislocation. Kager's fat pad is intact. Soft tissues are within normal limits. No radiopaque foreign bodies are identified. IMPRESSION: 1. No evidence of acute fracture.
--- NOTE | 2023-06-26 11:26 | XR ---
EXAMINATION TYPE: XR chest 2V DATE OF EXAM: 06/26/2023 11:07 AM CLINICAL INDICATION:Male, 52 years old with history of syncope; COMPARISON: Chest radiographs from 11/07/2020. TECHNIQUE: XR chest 2V Frontal and lateral views of the chest. FINDINGS: Lungs/Pleura: There is no evidence of pleural effusion, focal consolidation, or pneumothorax. Pulmonary vascularity: Unremarkable. Heart/mediastinum: Cardiomediastinal silhouette is unremarkable. Musculoskeletal: No acute osseous pathology. IMPRESSION: 1. No acute cardiopulmonary disease process. 2. COPD changes.
[2023-06-26] MEDS: DILTIAZEM DRIP BOLUS FROM BAG 1 MG SOLN IV ONE (11:27)
[2023-06-26] MEDS: DILTIAZEM 125 MG in SODIUM CHLORIDE 0.9% 100 ML IV SCH (11:29)
[2023-06-26] MEDS: METOPROLOL TARTRATE 5 MG/5 ML VIAL IVP STA (12:20)
[2023-06-26] MEDS: MAGNESIUM SULFATE-D5W PMX 1 GM in DEXTROSE/WATER 1 100ML.BAG IVPB ONE (12:31)
[2023-06-26] MEDS ORDERED: KETOROLAC 15 MG/ML 1 ML VIAL IVP PRN (13:40)
[2023-06-26] MEDS ORDERED: NALOXONE 0.4 MG/ML 1 ML VIAL IV PRN (13:40)
[2023-06-26] MEDS ORDERED: LORATADINE 10 MG TAB PO PRN (13:54)
[2023-06-26] MEDS ORDERED: FLUTICASONE 50MCG/SPRAY NASAL 16GM EA NOSTRIL PRN (13:54)
[2023-06-26] MEDS ORDERED: ONDANSETRON 4 MG/2 ML VIAL IVP PRN (13:55)
[2023-06-26] MEDS ORDERED: CALCIUM CARBONATE 500 MG CHEWABLE PO PRN (13:55)
[2023-06-26] MEDS ORDERED: ACETAMINOPHEN TAB 325 MG TAB PO PRN (13:55)
[2023-06-26] MEDS ORDERED: HEPARIN SODIUM 1,000 UN/ML (10ML VL) IV PRN (14:00)
[2023-06-26] MEDS ORDERED: METOPROLOL TARTRATE 5 MG/5 ML VIAL IVP PRN (14:24)
--- NOTE | 2023-06-26 14:24 | P.HPIM ---
History of Present Illness H&P Date: 06/26/23 Chief Complaint: Syncopal episode * 52-year-old gentleman with past medical history of nonobstructive coronary artery disease, history of hypertension, gastroesophageal reflux disease, history of sleep apnea, obesity presents to the emergency department after patient had a syncopal episode at work. Patient states he was at work when he twisted his ankle and following that he had significant pain and started to feel lightheaded. The next thing patient states he knew was that he was on the floor and coworkers were surrounding him. He did complain of continuous lightheadedness. Patient stated he did have previous history of loss of consciousness however that was associated with exertion. Patient said that he had been following up with cardiology and recently wanted an event monitor in which she was noted to have significant PVC * Workup initiated in ER included CBC which showed WBC count within normal limits hemoglobin 15.5 platelet count 248 INR within normal limits * Serum chemistry obtained showed sodium 138 potassium 4.5 carbon dioxide 24 BUN 13 creatinine 0.89 total bilirubin 1.9 liver profile within normal limits, magnesium of 1.8 * While in ER patient was noted to have elevated heart rate and noted to have atrial fibrillation * Patient was started on Cardizem drip with consultation to be obtained from cardiology REVIEW OF SYSTEMS: Loss of consciousness, ankle pain CONSTITUTIONAL: No fever, no malaise, no fatigue. HEENT: No recent visual problems or hearing problems. Denied any sore throat. CARDIOVASCULAR: No chest pain, orthopnea, PND, no palpitations, no syncope. PULMONARY: No shortness of breath, no cough, no hemoptysis. GASTROINTESTINAL: No diarrhea, no nausea, no vomiting, no abdominal pain. NEUROLOGICAL: No headaches, no weakness, no numbness. HEMATOLOGICAL: Denies any bleeding or petechiae. GENITOURINARY: Denies any burning micturition, frequency, or urgency. MUSCULOSKELETAL/RHEUMATOLOGICAL: Denies any joint pain, swelling, or any muscle pain. ENDOCRINE: Denies any polyuria or polydipsia. PHYSICAL EXAMINATION: GENERAL: The patient is alert and oriented x3, not in any acute distress. Well developed, well nourished. HEENT: Pupils are round and equally reacting to light. EOMI. No scleral icterus. No conjunctival pallor. Normocephalic, atraumatic. No pharyngeal erythema. No thyromegaly. CARDIOVASCULAR: S1 and S2 present. Tachycardia irregular rhythm PULMONARY: Chest is clear to auscultation, no wheezing or crackles. ABDOMEN: Soft, nontender, nondistended, normoactive bowel sounds. No palpable organomegaly. MUSCULOSKELETAL: No joint swelling or deformity. EXTREMITIES: No cyanosis, clubbing, or pedal edema. NEUROLOGICAL: Gross neurological examination did not reveal any focal deficits. SKIN: No rashes. Past Medical History Past Medical History: Chest Pain / Angina, CVA/TIA, GERD/Reflux, Hyperlipidemia, Hypertension, Osteoarthritis (OA), Sleep Apnea/CPAP/BIPAP Additional Past Medical History / Comment(s): palpitations, TIA-no residual effects, "irregular heartbeat", History of Any Multi-Drug Resistant Organisms: None Reported Past Surgical History: Heart Catheterization, Hernia Repair Past Anesthesia/Blood Transfusion Reactions: Motion Sickness Past Psychological History: No Psychological Hx Reported Smoking Status: Former smoker - Past Family History Mother Family Medical History: No Reported History Medications and Allergies Home Medications Medication Instructions Recorded Confirmed Type Atorvastatin [Lipitor] 40 mg PO DAILY 11/19/20 06/26/23 History Losartan Potassium [Cozaar] 50 mg PO DAILY 11/19/20 06/26/23 History Metoprolol Succinate [Toprol XL] 25 mg PO DAILY 11/19/20 06/26/23 History Fluticasone Nasal [place] [Flonase 1 spray EA NOSTRIL DAILY PRN 10/05/21 06/26/23 History Nasal [place]] Levocetirizine Dihydrochloride 5 mg PO DAILY PRN 06/26/23 06/26/23 History [Xyzal] Allergies Allergy/AdvReac Type Severity Reaction Status Date / Time No Known Allergies Allergy Verified 06/26/23 12:38 Physical Exam Vitals: Vital Signs Temp Pulse Resp BP Pulse Ox 06/26/23 12:18 146 H 18 104/81 96 06/26/23 11:24 154 H 18 120/80 98 06/26/23 10:17 98.2 F 91 18 126/92 99 Intake and Output 06/25/23 06/26/23 06/26/23 22:59 06:59 14:59 Intake Total 11.417 Balance 11.417 Intake: Intake, IV Titration 11.417 Amount Diltiazem 125 mg In 11.417 Sodium Chloride 0.9% 100 ml @ 5 MG/HR 5 mls/hr IV .Q24H RYAN Rx#:[id number] Other: Weight 120.202 kg Results CBC & Chem 7: 06/26/23 10:43 06/26/23 10:43 Labs: Abnormal Lab Results - Last 24 Hours (Table) 06/26/23 Range/Units 10:43 Chloride 108 H (98-107) mmol/L Glucose 102 H (74-99) mg/dL Total Bilirubin 1.9 H (0.2-1.3) mg/dL Assessment and Plan Assessment: Assessment and plan * Atrial fibrillation new onset with rapid ventricular response * Syncope cardiac in origin * History of hypertension * History of dyslipidemia * History of sleep apnea * Obesity * In regards to atrial fibrillation, patient started on Cardizem drip, continue cardiac monitoring, optimize electrolytes potassium and magnesium. Patient started on IV heparin drip. Patient has a high Jonathan Vascor hence started on anticoagulation * Will request echocardiogram, TSH, HbA1c * In regards to history of hypertension continue patient on metoprolol, on Cardizem drip, monitor for hypotension Cozaar on hold * Regards to dyslipidemia continue Lipitor * CODE STATUS is full code Time with Patient: Greater than 30
[2023-06-26] MEDS: SODIUM CHLORIDE 0.9% 1,000 ML IV SCH (14:38)
[2023-06-26] MEDS: METOPROLOL SUCCINATE (ER) 25 MG TAB.ER.24H PO SCH (14:42)
[2023-06-26] MEDS: HEPARIN SODIUM 1,000 UN/ML (10ML VL) IV ONE (14:47)
[2023-06-26] MEDS: HEPARIN SOD,PORK IN 0.45% NACL 25,000 UNIT in 0.45% NACL 1 250ML.BAG IV SCH (14:48)
[2023-06-26 17:00] VITALS: TEMP 97.6
[2023-06-26] MEDS: HEPARIN SODIUM 1,000 UN/ML (10ML VL) IVP ONE (21:44)
[2023-06-27 04:26] LABS: Basophils # (A) 0.1 k/uL (0-0.2); Basophils % (A) 1 %; Eosinophils # (A) 0.3 k/uL (0-0.7); Eosinophils % (A) 3 %; HGB 14.4 gm/dL (13.0-17.5); Lymphocytes # (A) 2.3 k/uL (1.0-4.8); Lymphocytes % (A) 24 %; MCH 32.2 pg (25.0-35.0); MCHC 34.4 g/dL (31.0-37.0); MCV 93.5 fL (80.0-100.0); Mean Platelet Volume 7.6; Monocytes # (A) 0.6 k/uL (0-1.0); Monocytes % (A) 7 %; Neutrophils # (A) 6.1 k/uL (1.3-7.7); Neutrophils % (A) 64 %; Platelet Count 235 k/uL (150-450); RBC 4.49 m/uL (4.30-5.90); RDW 12.3 % (11.5-15.5); WBC 9.6 k/uL (3.8-10.6)
[2023-06-27 04:35] LABS: Prothrombin Time 10.7 sec (10.0-12.5)
[2023-06-27 04:54] LABS: African American GFR (CKD) >90 (>60 ml/min/1.73 sqM); Anion Gap 4 mmol/L; Blood Urea Nitrogen 12 mg/dL (9-20); Calcium 8.4 mg/dL (8.4-10.2); Carbon Dioxide 25 mmol/L (22-30); Chloride 109 mmol/L (98-107); Glucose 107 mg/dL (74-99); Magnesium 1.9 mg/dL (1.6-2.3); Non-African American GFR(CKD) >90 (>60 ml/min/1.73 sqM); Phosphorus 3.1 mg/dL (2.5-4.5); Potassium 4.2 mmol/L (3.5-5.1); Sodium 138 mmol/L (137-145)
[2023-06-27] MEDS: ATORVASTATIN 40 MG TAB PO SCH (08:59)
[2023-06-27] MEDS: APIXABAN 5 MG TAB PO SCH (08:59)
[2023-06-27 11:36] VITALS: RESP 18
--- NOTE | 2023-06-27 11:51 | P.CRDCN ---
History of Present Illness Consult date: 06/27/23 Consult reason: atrial fibrillation ([place]) History of present illness: History of present illness: This is a 52-year-old male patient of Dr. Villagran with past medical history of hypertension, borderline diabetes mellitus type 2, obstructive sleep apnea, hyperlipidemia, chewing tobacco, mild obesity, history of TIA 2 years ago, PVCs, nonsustained ventricular tachycardia. We have been asked to evaluate the patient for new onset of atrial fibrillation. Patient states that he was at work yesterday and had a fall where he missed a step and was having significant pain in his ankle. Patient then states he sat down and subsequently passed out and coworkers found him on the ground. He denies any other episodes like this. No chest pain, no shortness of breath, no lightheadedness or dizziness. He noted that he had 3 mixed drinks on watching the Super Bowl. Patient is been started on heparin drip and Cardizem drip. Patient seen today in the emergency center waiting for a bed on the cardiac stepdown unit. EKG atrial fibrillation with ventricular rate of 144 bpm. Telemetry sinus rhythm in the 70s. Chest x-ray: No acute cardiopulmonary disease process. COPD changes. Left ankle x-ray: No acute fracture. CBC within normal notes. I am. Sodium 138, potassium 4.2, BUN 12 and creatinine 0.89. Blood sugar 107. Magnesium 1.9. Liver function test within normal limits except for total bilirubin 1.9. TSH 2.01. Home cardiac medications: Atorvastatin 40 mg daily, losartan 50 mg daily, Toprol-XL 25 mg daily. Cardiac catheterization performed 11/20/2020 revealed relatively normal coronary arteries except for proximal LAD 30 to 40% stenosis. Normal left-sided filling pressures. Echocardiogram performed 10/28/2020 in the office revealed EF of 55%. Mild concentric left ventricular hypertrophy. Mild aortic regurgitation, mild mitral regurgitation, mild tricuspid regurgitation. Normal pulmonary artery systolic pressure. Mild pulmonic regurgitation. Cardiac event monitor 09/28/2020: 14-day revealed sinus rhythm with sinus tachycardia and frequent PVCs. Included 4 beat run of nonsustained V. tach. PACs also noted. Review Of Systems: At the time of my exam: CONSTITUTIONAL: Denies fever or chills. HEENT: Denies blurred vision, vision changes, or eye pain. Denies hemoptysis CARDIOVASCULAR: Denies chest pain. Denies orthopnea. Denies PND. Denies palpitations RESPIRATORY: Denies shortness of breath. GASTROINTESTINAL: Denies abdominal pain. Denies nausea or vomiting. HEMATOLOGIC: Denies bleeding disorders. GENITOURINARY: Denies any blood in urine. SKIN: Denies pruitis. Denies rash. Physical examination: Gen: This is a 52-year-old male appears to be in no acute distress. VS: reviewed HEENT: Head is atraumatic, normocephalic. Pupils equal, round. Sclerae is anicteric. NECK: Supple. No JVD. LUNGS: Clear to auscultation. No wheezes or rhonchi. No intercostal retractions. HEART: Regular rate and rhythm. No murmur. ABDOMEN: Soft No tenderness. EXTREMITIES: No pedal edema. No calf tenderness. NEUROLOGICAL: Patient is awake, alert and oriented x3. Assessment: Paroxysmal atrial fibrillation converted to sinus rhythm Hypertension Borderline diabetes Obstructive sleep apnea Hyperlipidemia History of TIA 2 years ago Nonsustained ventricular tachycardia Plan: Discontinue heparin drip and start patient on Eliquis 5 mg twice daily Continue patient on metoprolol succinate 25 mg daily Continue other home cardiac medications Obtain 2-D echocardiogram and Doppler study to assess cardiac structure and function If echocardiogram is unremarkable, patient is cleared for discharge and may follow-up with Dr. Villagran in 1 to 2 weeks. Patient has been advised to avoid alcohol. Thank you kindly for this consultation. Nurse practitioner note has been reviewed, I agree with documented findings and plan of care. Patient was seen and examined. Past Medical History Past Medical History: Chest Pain / Angina, CVA/TIA, GERD/Reflux, Hyperlipidemia, Hypertension, Osteoarthritis (OA), Sleep Apnea/CPAP/BIPAP Additional Past Medical History / Comment(s): palpitations, TIA-no residual effects, "irregular heartbeat", History of Any Multi-Drug Resistant Organisms: None Reported Past Surgical History: Heart Catheterization, Hernia Repair Past Anesthesia/Blood Transfusion Reactions: Motion Sickness Past Psychological History: No Psychological Hx Reported Smoking Status: Former smoker - Past Family History Mother Family Medical History: No Reported History Medications and Allergies Home Medications Medication Instructions Recorded Confirmed Type Atorvastatin [Lipitor] 40 mg PO DAILY 11/19/20 06/26/23 History Losartan Potassium [Cozaar] 50 mg PO DAILY 11/19/20 06/26/23 History Metoprolol Succinate [Toprol XL] 25 mg PO DAILY 11/19/20 06/26/23 History Fluticasone Nasal [place] [Flonase 1 spray EA NOSTRIL DAILY PRN 10/05/21 06/26/23 History Nasal [place]] Levocetirizine Dihydrochloride 5 mg PO DAILY PRN 06/26/23 06/26/23 History [Xyzal] Allergies Allergy/AdvReac Type Severity Reaction Status Date / Time No Known Allergies Allergy Verified 06/26/23 12:38 Physical Exam Vitals: Vital Signs Temp Pulse Pulse Resp BP BP Pulse Ox 06/27/23 06:36 75 19 127/81 98 06/27/23 03:32 70 17 101/56 96 06/26/23 23:52 75 19 126/78 97 06/26/23 22:17 97.6 F 80 17 117/72 98 06/26/23 19:08 87 18 123/80 98 06/26/23 16:42 97.6 F 84 18 117/86 97 06/26/23 14:51 100 18 122/78 97 06/26/23 14:35 97 18 122/76 96 06/26/23 14:00 98.1 F 120 H 101/86 97 06/26/23 12:18 146 H 18 104/81 96 06/26/23 11:24 154 H 18 120/80 98 06/26/23 10:17 98.2 F 91 18 126/92 99 Intake and Output 06/26/23 06/27/23 06/27/23 22:59 06:59 14:59 Intake Total 69.34 72.25 Balance 69.34 72.25 Intake: Intake, IV Titration 69.34 72.25 Amount Diltiazem 125 mg In 72.25 Sodium Chloride 0.9% 100 ml @ 5 MG/HR 5 mls/hr IV .Q24H RYAN Rx#:[id number] Heparin Sod,Pork in 0.45% 69.34 NaCl 25,000 unit In 0.45 % NaCl 1 250ml.bag @ 8.3 UNITS/KG/HR 9.977 mls/hr IV .Q24H RYAN Rx#: [id number] Other: Weight 120.202 kg Results 06/27/23 04:10 06/27/23 04:10 Cardiac Enzymes 06/26/23 06/26/23 Range/Units 10:43 10:43 AST 35 (17-59) U/L Troponin I <0.012 (0.000-0.034) ng/mL Coagulation 06/26/23 06/26/23 06/27/23 Range/Units 10:43 20:34 04:10 PT 10.3 10.7 (10.0-12.5) sec APTT 22.5 36.2 H (22.0-30.0) sec 06/27/23 Range/Units 04:10 PT (10.0-12.5) sec APTT 55.1 H (22.0-30.0) sec CBC 06/26/23 06/27/23 Range/Units 10:43 04:10 WBC 7.5 9.6 (3.8-10.6) k/uL RBC 5.02 4.49 (4.30-5.90) m/uL Hgb 15.5 14.4 (13.0-17.5) gm/dL Hct 46.6 42.0 (39.0-53.0) % Plt Count 248 235 (150-450) k/uL Comprehensive Metabolic Panel 06/26/23 06/27/23 Range/Units 10:43 04:10 Sodium 138 138 (137-145) mmol/L Potassium 4.5 4.2 (3.5-5.1) mmol/L Chloride 108 H 109 H (98-107) mmol/L Carbon Dioxide 24 25 (22-30) mmol/L BUN 13 12 (9-20) mg/dL Creatinine 0.89 0.89 (0.66-1.25) mg/dL Glucose 102 H 107 H (74-99) mg/dL Calcium 9.0 8.4 (8.4-10.2) mg/dL AST 35 (17-59) U/L ALT 32 (4-49) U/L Alkaline Phosphatase 101 (38-126) U/L Total Protein 6.7 (6.3-8.2) g/dL Albumin 4.1 (3.5-5.0) g/dL Current Medications Generic Name Dose Route Start Last Admin Trade Name Freq PRN Reason Stop Dose Admin Acetaminophen 650 mg 06/26/23 13:55 Acetaminophen Tab 325 Mg Tab PO Q6HR PRN Mild Pain or Fever > 100.5 Atorvastatin Calcium 40 mg 06/27/23 09:00 Atorvastatin 40 Mg Tab PO DAILY RYAN Calcium Carbonate/Glycine 1,000 mg 06/26/23 13:55 Calcium Carbonate 500 Mg Chewable PO Q4HR PRN Dyspepsia Fluticasone Propionate 1 spray 06/26/23 13:54 Fluticasone 50mcg/[place] Nasal 16gm EA NOSTRIL DAILY PRN Allergy Symptoms Heparin Sodium (Porcine) 0 unit 06/26/23 14:00 Heparin Sodium 1,000 Un/Ml (10ml Vl) IV PER PROTOCOL PRN Low PTT Protocol Diltiazem HCl 125 mg/ Sodium 125 mls @ 5 mls/hr 06/26/23 11:15 06/27/23 05:09 Chloride IV 5 mg/hr .Q24H RYAN 5 mls/hr Administration 5 MG/HR Sodium Chloride 1,000 mls @ 130 mls/hr 06/26/23 13:45 06/27/23 05:09 Saline 0.9% IV 130 mls/hr .Q7H42M RYAN Administration Heparin Sodium/Sodium Chloride 250 mls @ 9.977 mls/hr 06/26/23 14:00 06/27/23 06:36 25,000 unit/ Sodium Chloride IV Not Given .Q24H RYAN Protocol 8.3 UNITS/KG/HR Ketorolac Tromethamine 15 mg 06/26/23 13:40 Ketorolac 15 Mg/Ml 1 Ml Vial IVP 06/29/23 13:41 Q6HR PRN Moderate Pain (Scale 4 to 6) Loratadine 10 mg 06/26/23 13:54 Loratadine 10 Mg Tab PO DAILY PRN Allergy Symptoms Metoprolol Succinate 25 mg 06/26/23 14:00 06/26/23 14:42 Metoprolol Succinate (Er) 25 Mg Tab.Er.24h PO Not Given DAILY RYAN Metoprolol Tartrate 5 mg 06/26/23 14:24 Metoprolol Tartrate 5 Mg/5 Ml Vial IVP Q5M PRN Cardiac Arrhythmia Naloxone HCl 0.2 mg 06/26/23 13:40 Naloxone 0.4 Mg/Ml 1 Ml Vial IV Q2M PRN Opioid Reversal Ondansetron HCl 4 mg 06/26/23 13:55 Ondansetron 4 Mg/2 Ml Vial IVP Q8HR PRN Nausea And Vomiting Intake and Output 06/26/23 06/27/23 06/27/23 22:59 06:59 14:59 Intake Total 69.34 72.25 Balance 69.34 72.25 Intake: Intake, IV Titration 69.34 72.25 Amount Diltiazem 125 mg In 72.25 Sodium Chloride 0.9% 100 ml @ 5 MG/HR 5 mls/hr IV .Q24H RYAN Rx#:[id number] Heparin Sod,P[place] in 0.45% 69.34 NaCl 25,000 unit In 0.45 % NaCl 1 250ml.bag @ 8.3 UNITS/KG/HR 9.977 mls/hr IV .Q24H RYAN Rx#: [id number] Other: Weight 120.202 kg 06/27/23 04:10 06/27/23 04:10
--- NOTE | 2023-06-27 12:43 | P.DS ---
Providers Date of admission: 06/26/23 13:05 Expected date of discharge: 06/27/23 Attending physician: Desirae Saenz MD Consults: 06/26/23 13:40 Consult Physician Routine Consulting Provider: Dustin Villagran Consult Reason/Comments: new onset afib Do you want consulting provider notified?: Yes Primary care physician: Cruz Belcher [facility] Course: * 52-year-old gentleman with past medical history of nonobstructive coronary artery disease, history of hypertension, gastroesophageal reflux disease, history of sleep apnea, obesity presents to the emergency department after lori kyle had a syncopal episode at work. Patient states he was at work when he twisted his ankle and following that he had significant pain and started to feel lightheaded. The next thing patient states he knew was that he was on the floor and coworkers were surrounding him. He did complain of continuous lightheadedness. Patient stated he did have previous history of loss of consciousness however that was associated with exertion. Patient said that he had been following up with cardiology and recently wanted an event monitor in which she was noted to have significant PVC * Workup initiated in ER included CBC which showed WBC count within normal limits hemoglobin 15.5 platelet count 248 INR within normal limits * Serum chemistry obtained showed sodium 138 potassium 4.5 carbon dioxide 24 BUN 13 creatinine 0.89 total bilirubin 1.9 liver profile within normal limits, magnesium of 1.8 * While in ER patient was noted to have elevated heart rate and noted to have atrial fibrillation * Patient was started on Cardizem drip with consultation to be obtained from cardiology * 06/27/2023: Patient seen and evaluated bedside, patient seen by cardiology patient maintained sinus rhythm. Transition to Eliquis. Continue metoprolol, upon discharge continue Cozaar. Patient maintained sinus rhythm and echocardiogram completed as well REVIEW OF SYSTEMS: Loss of consciousness resolved, ankle pain improved CONSTITUTIONAL: No fever, no malaise, no fatigue. HEENT: No recent visual problems or hearing problems. Denied any sore throat. CARDIOVASCULAR: No chest pain, orthopnea, PND, no palpitations, no syncope. PULMONARY: No shortness of breath, no cough, no hemoptysis. GASTROINTESTINAL: No diarrhea, no nausea, no vomiting, no abdominal pain. NEUROLOGICAL: No headaches, no weakness, no numbness. HEMATOLOGICAL: Denies any bleeding or petechiae. GENITOURINARY: Denies any burning micturition, frequency, or urgency. MUSCULOSKELETAL/RHEUMATOLOGICAL: Denies any joint pain, swelling, or any muscle pain. ENDOCRINE: Denies any polyuria or polydipsia. PHYSICAL EXAMINATION: GENERAL: The patient is alert and oriented x3, not in any acute distress. Well developed, well nourished. HEENT: Pupils are round and equally reacting to light. EOMI. No scleral icterus. No conjunctival pallor. Normocephalic, atraumatic. No pharyngeal erythema. No thyromegaly. CARDIOVASCULAR: S1 and S2 present. Sinus rhythm, rate controlled PULMONARY: Chest is clear to auscultation, no wheezing or crackles. ABDOMEN: Soft, nontender, nondistended, normoactive bowel sounds. No palpable organomegaly. MUSCULOSKELETAL: No joint swelling or deformity. EXTREMITIES: No cyanosis, clubbing, or pedal edema. NEUROLOGICAL: Gross neurological examination did not reveal any focal deficits. SKIN: No rashes. Assessment and plan * Atrial fibrillation new onset with rapid ventricular response * Syncope cardiac in origin * History of hypertension * History of dyslipidemia * History of sleep apnea * Obesity * In regards to atrial fibrillation, patient was weaned off Cardizem drip, transition to Eliquis and metoprolol, HbA1c 5.7, TSH within normal limits * Completed echocardiogram, TSH, HbA1c reviewed, within normal limits * In regards to history of hypertension continue patient on metoprolol, upon discharge continue Cozaar * Regards to dyslipidemia continue Lipitor Patient Condition at Discharge: Stable Plan - Discharge Summary Discharge Rx Participant: No New Discharge Prescriptions: New Apixaban [Eliquis] 5 mg PO BID 30 Days #60 tab Continue Losartan Potassium [Cozaar] 50 mg PO DAILY Metoprolol Succinate [Toprol XL] 25 mg PO DAILY Atorvastatin [Lipitor] 40 mg PO DAILY Fluticasone Nasal [place] [Flonase Nasal [place]] 1 spray EA NOSTRIL DAILY PRN PRN Reason: Allergy Symptoms Levocetirizine Dihydrochloride [Xyzal] 5 mg PO DAILY PRN PRN Reason: Allergy Symptoms Discharge Medication List Atorvastatin [Lipitor] 40 mg PO DAILY 11/19/20 [History] Losartan Potassium [Cozaar] 50 mg PO DAILY 11/19/20 [History] Metoprolol Succinate [Toprol XL] 25 mg PO DAILY 11/19/20 [History] Fluticasone Nasal [place] [Flonase Nasal [place]] 1 spray EA NOSTRIL DAILY PRN 10/05/21 [History] Levocetirizine Dihydrochloride [Xyzal] 5 mg PO DAILY PRN 06/26/23 [History] Apixaban [Eliquis] 5 mg PO BID 30 Days #60 tab 06/27/23 [Rx] Follow up Appointment(s)/Referral(s): Cruz Belcher MD [Primary Care Provider] - 1-2 days Dustin Villagran DO [STAFF PHYSICIAN] - 1 Week Discharge Disposition: HOME SELF-CARE
[2023-06-27 13:05] VITALS: BP 115/75; PULSE 85
--- NOTE | 2023-06-27 14:31 | CA ---
Transthoracic Echo Report Name: Camilo Guo Age: 52 Gender: M : 1970 Exam Date: 06/27/2023 10:47 Exam Location: [facility] Ht (in): 72 Wt (lb): 265 Ordering Physician: Desirae Saenz MD Attending/Referring Phys: Rural Service Engineer Kenneth Quiñonez RDCS Procedure CPT: Indications: arrhythmia Cardiac Hx: Technical Quality: Fair Contrast 1: Total Dose (mL): Contrast 2: Total Dose (mL): MEASUREMENTS (Male / Female) Normal Values 2D ECHO LV Diastolic Diameter PLAX 4.3 cm 4.2 - 5.9 / 3.9 - 5.3 cm LV Systolic Diameter PLAX 3.1 cm IVS Diastolic Thickness 1.3 cm 0.6 - 1.0 / 0.6 - 0.9 cm LVPW Diastolic Thickness 0.8 cm 0.6 - 1.0 / 0.6 - 0.9 cm LV Relative Wall Thickness 0.5 Aortic Root Diameter 4.5 cm LA Systolic Diameter LX 3.6 cm 3.0 - 4.0 / 2.7 - 3.8 cm DOPPLER AV Peak Velocity 94.7 cm/s AV Peak Gradient 3.6 mmHg AV Mean Velocity 71.0 cm/s AV Mean Gradient 2.2 mmHg AV Velocity Time Integral 20.6 cm LVOT Peak Velocity 92.1 cm/s LVOT Peak Gradient 3.4 mmHg LVOT Velocity Time Integral 19.8 cm Mitral E Point Velocity 65.1 cm/s Mitral A Point Velocity 60.8 cm/s Mitral E to A Ratio 1.1 MV Deceleration Time 200.5 ms MV E' Velocity 10.9 cm/s Mitral E to MV E' Ratio 6.0 PV Peak Velocity 79.2 cm/s PV Peak Gradient 2.5 mmHg FINDINGS Left Ventricle Mildly increased septal wall thickness. Left ventricular ejection fraction is estimated at 55-60%. Right Ventricle Normal right ventricular size and function. Right Atrium Normal right atrial size. Left Atrium Normal left atrial size. Mitral Valve Trace mitral regurgitation. Aortic Valve Trileaflet aortic valve. Tricuspid Valve Trace tricuspid regurgitation. Pulmonic Valve Pulmonic valve not well visualized. Pericardium Normal pericardium. Aorta Aortic root measuring approximately 4.5 cm. CONCLUSIONS Previous echo recoreded on 12/08/2017. Mild increased left ventricle wall thickness Left ventricular ejection fraction 55-60% Trace mitral regurgitation Aortic root measuring 4.5 cm Previewed by: Dr. Dustin Villagran DO (Electronically Signed) Final Date: 27 June 2023 14:30
== END 2023-06-27 15:05 | disposition home or self-care (01) | DRG 310 ==
LOC: EC 10:04 → 3SCARD 13:05
PROVIDERS: ADMIT Internal Medicine; ATTEND Internal Medicine
DX: I48.0 Paroxysmal atrial fibrillation (principal); I49.3 Ventricular premature depolarization; I47.20 Ventricular tachycardia, unspecified; E66.9 Obesity, unspecified; E78.5 Hyperlipidemia, unspecified; G47.33 Obstructive sleep apnea (adult) (pediatric); R73.03 Prediabetes; M19.90 Unspecified osteoarthritis, unspecified site; M25.579 Pain in unspecified ankle and joints of unspecified foot; K21.9 Gastro-esophageal reflux disease without esophagitis; I10 Essential (primary) hypertension; I25.10 Atherosclerotic heart disease of native coronary artery without angina pectoris; X50.1XXA Overexertion from prolonged static or awkward postures, initial encounter; Y99.0 Civilian activity done for income or pay; W19.XXXA Unspecified fall, initial encounter; Z79.899 Other long term (current) drug therapy; Z86.73 Personal history of transient ischemic attack (TIA), and cerebral infarction without residual deficits; Z68.35 Body mass index [BMI] 35.0-35.9, adult; Z28.21 Immunization not carried out because of patient refusal
CPT/HCPCS: 36415; 71046; 80048; 80053; 83036; 83735; 84100; 84443; 84484; 85025; 85379; 85610; 85730; 93005; 93306; 96365; 96366; 96368; 96375; 99285